=== PATIENT | female | born 1995 | race African-American/Black ===

== ENCOUNTER 2022-06-18 02:07 | Inpatient (IN) ==
[2022-06-18] MEDS ORDERED: TRANEXAMIC ACID 1,000 MG in SODIUM CHLORIDE 0.9% 100 ML IV PRN (02:20)
[2022-06-18] MEDS ORDERED: CARBOPROST TROMETHAMINE 250 MCG/ML AMP IM PRN (02:20)
[2022-06-18] MEDS ORDERED: METHYLERGONOVINE 0.2 MG/1 ML AMP IM PRN (02:20)
[2022-06-18] MEDS ORDERED: miSOPROStoL 200 MCG TABLET RECTAL PRN (02:20)
[2022-06-18] MEDS ORDERED: MEPERIDINE 50 MG/1 ML VIAL IV PRN (02:20)
[2022-06-18] MEDS ORDERED: ONDANSETRON 4 MG/2 ML VIAL IV PRN (02:20)
[2022-06-18] MEDS ORDERED: BUTORPHANOL 2 MG/ML VIAL IV PRN (02:20)
[2022-06-18] MEDS ORDERED: LACTATED RINGERS 1,000 ML IV SCH (02:30)
[2022-06-18] MEDS ORDERED: OXYTOCIN/LR 20 UNIT/1,000 ML BAG IV SCH (02:30)
[2022-06-18] MEDS ORDERED: NALOXONE 0.4 MG/ML VIAL IV PRN (02:51)
[2022-06-18] MEDS ORDERED: hydrOXYzine HCL 25 MG/1 ML VIAL IM PRN (02:51)
[2022-06-18] MEDS ORDERED: diphenhydrAMINE 50 MG/1 ML VIAL IV PRN ×2 (02:51)
[2022-06-18] MEDS ORDERED: PROMETHAZINE 25 MG/1 ML VIAL IM PRN (02:51)
[2022-06-18] MEDS ORDERED: ePHEDrine 50 MG/ML VIAL IV PRN (02:51)
[2022-06-18] MEDS ORDERED: OXYTOCIN/LR 30 UNIT/1,000 ML BAG IV PRN (02:53)
[2022-06-18] MEDS ORDERED: FAMOTIDINE 20 MG/2 ML VIAL IV ONE (02:55)
[2022-06-18] MEDS ORDERED: CITRIC ACID/SODIUM CITRATE 30 ML UDCUP PO ONE (02:55)
[2022-06-18] MEDS ORDERED: LACTATED RINGERS 1,000 ML IV ONE (02:56)
[2022-06-18] MEDS ORDERED: fentaNYL 2 MCG/ROPIV 0.2% EPID 100 ML EPIDURAL SCH (03:00)
[2022-06-18 03:30] LABS: Basophils # 0.1 10*3/uL (0.0-0.2); Basophils % 0.4 % (0.0-0.8); Eosinophils # 0.2 10*3/uL (0.0-0.87); Eosinophils % 1.1 % (0.00-10.9); Hematocrit 34.6 VOL% (35.7-47.0); Hemoglobin 12.4 GM/DL (12.0-16.0); Immature Granulocytes % 1.6 %; Immature Granulocytes Absolute 0.34 #; Lymphocytes % 14.1 % (21.3-54.2); Mean Corpuscular HGB Conc 35.8 GM/DL (32-36); Mean Corpuscular Volume 78.6 FL (87-102); Mean Platelet Volume 9.9 FL (9.6-12.0); Monocytes # 2.3 10*3/uL (0.11-0.8); Monocytes % 10.6 % (1.7-12.7); NRBC # 0.02 10*3/uL; Neutrophils % 72.2 % (38.7-73.9); Platelet Count 347 T/CUMM (130-400); Red Cell Distribution Width 15.4 % (9.3-17.3); White Blood Count 21.58 T/CUMM (4-12)
[2022-06-18 03:51] LABS: Band Neutrophils 5 % (0-10); Lymphocytes 12 % (20-55); Total Cells Counted 100
[2022-06-18 03:52] LABS: Alanine Aminotransferase 15 U/L (13-56); Albumin 2.9 G/DL (3.4-5.0); Alkaline Phosphatase 122 U/L (45-117); Aspartate Amino Transferase 10 U/L (0-37); Bilirubin,Total < 0.39 MG/DL (0.20-1.00); Blood Urea Nitrogen 8 MG/DL (7-18); Calcium 8.7 MG/DL (8.5-10.1); Carbon Dioxide 19 MMOL/L (21-32); Chloride 110 MMOL/L (98-107); Glucose 98 MG/DL (74-106); Hypochromia Slight; Microcytosis 1+; Osmolality,Calculated 276.4 MOS/KG (273-304); Platelet Estimate Normal; Potassium 3.8 MMOL/L (3.5-5.1); Sodium 140 MMOL/L (136-145); Total Protein 6.9 G/DL (6.4-8.2)
[2022-06-18 10:59] LABS: Mucus,Urine Occasional /LPF (Occasional); RBC,Urine 7 /HPF (0-4)
[2022-06-18 11:01] LABS: Bilirubin,Urine Negative (Negative); Blood, Urine Small mg/dL (Negative); Glucose,Urine (UA) Negative (Negative); Ketones,Urine Negative (Negative); Nitrite,Urine Negative (Negative); Protein,Urine Negative (Negative); Urine Appearance Clear (Clear); Urine Color Yellow (Yellow); Urine Specific Gravity 1.015 (1.001-1.035); Urine Urobilinogen 0.2 eU/dL (<2.0)
[2022-06-18] MEDS ORDERED: TRANEXAMIC ACID 1,000 MG/10 ML VIAL ONE (11:41)
[2022-06-18] MEDS ORDERED: miSOPROStoL 200 MCG TABLET ONE (11:41)
[2022-06-18] MEDS ORDERED: CARBOPROST TROMETHAMINE 250 MCG/ML AMP IM ONE (11:42)
[2022-06-18] MEDS ORDERED: METHYLERGONOVINE 0.2 MG/1 ML AMP ONE (11:42)
[2022-06-18] MEDS ORDERED: OXYTOCIN/LR 20 UNIT/1,000 ML BAG IV ONE ×3 (11:42→15:31)
[2022-06-18] MEDS ORDERED: SODIUM CHLORIDE 0.9% 0 ML IV ONE (11:42)
[2022-06-18 12:37] LABS: Cord Arterial Blood HCO3 22.2 MMOL/L
[2022-06-18 12:40] LABS: Cord Venous Blood PCO2 37.1 MMHG; Cord Venous Blood PO2 34.2
[2022-06-18] MEDS ORDERED: BENZOCAINE 20%/MENTHOL 0.5% SPRAY 56 GM CAN TOP PRN (15:31)
[2022-06-18] MEDS ORDERED: ACETAMINOPHEN 325 MG TABLET PO PRN (15:31)
[2022-06-18] MEDS ORDERED: DIPH/TET/ACEL PERT BOOSTER VACCINE 0.5 ML VIAL IM ONE (15:31)
[2022-06-18] MEDS ORDERED: RHO(D) IMMUNE GLOBULIN 300 MCG SYRINGE IM ONE (15:31)
[2022-06-18] MEDS ORDERED: WITCH HAZEL PADS 100/JAR TOP PRN (15:31)
[2022-06-18] MEDS ORDERED: LANOLIN 50% CREAM 0.3 OZ TUBE TOP PRN (15:31)
[2022-06-18] MEDS ORDERED: HYDROCORTISONE 2.5% RECTAL CREAM 30 GM TUBE TOP PRN (15:31)
[2022-06-18] MEDS ORDERED: oxyCODONE/ACETAMINOPHEN 5-325 MG TABLET PO PRN (15:31)
[2022-06-18] MEDS ORDERED: MEASLES/MUMPS/RUBELLA VACCINE 0.5 ML VIAL SUBCUT ONE (15:31)
[2022-06-18] MEDS ORDERED: BISACODYL 10 MG SUPP RECTAL PRN (15:31)
[2022-06-18] MEDS: oxyCODONE/ACETAMINOPHEN 5-325 MG TABLET PO PRN (15:57)
[2022-06-18] MEDS: IBUPROFEN 800 MG TABLET PO PRN (15:57)
[2022-06-18] MEDS: DOCUSATE SODIUM 100 MG CAPSULE PO SCH (20:59)
[2022-06-19] MEDS: IBUPROFEN 800 MG TABLET PO PRN ×2 (01:05→07:51)
[2022-06-19 04:58] LABS: Basophils # 0.1 10*3/uL (0.0-0.2); Basophils % 0.3 % (0.0-0.8); Eosinophils # 0.3 10*3/uL (0.0-0.87); Eosinophils % 1.5 % (0.00-10.9); Hematocrit 32.1 VOL% (35.7-47.0); Hemoglobin 11.7 GM/DL (12.0-16.0); Immature Granulocytes Absolute 0.22 #; Lymphocytes % 13.7 % (21.3-54.2); Mean Corpuscular HGB Conc 36.4 GM/DL (32-36); Mean Corpuscular Volume 79.3 FL (87-102); Mean Platelet Volume 9.5 FL (9.6-12.0); Monocytes # 2.4 10*3/uL (0.11-0.8); Neutrophils % 72.5 % (38.7-73.9); Platelet Count 277 T/CUMM (130-400); Red Blood Count 4.05 MC/CUMM (3.8-5.5); Red Cell Distribution Width 15.3 % (9.3-17.3); White Blood Count 21.93 T/CUMM (4-12)
[2022-06-19 05:31] LABS: Band Neutrophils 2 % (0-10); Eosinophils 2 % (0-10); Lymphocytes 15 % (20-55); Total Cells Counted 100
[2022-06-19 05:32] LABS: Hypochromia Slight; Microcytosis 1+; Polychromasia Slight; Target Cells Slight
[2022-06-19] MEDS: DOCUSATE SODIUM 100 MG CAPSULE PO SCH ×3 (07:51→20:53)
[2022-06-19] MEDS: MULTIVITAMIN (PRENATAL) TABLET PO SCH ×2 (07:51→12:59)
[2022-06-19] MEDS ORDERED: INFLUENZA VIRUS VACCINE 0.5 ML SYRINGE IM ONE (09:08)
[2022-06-19] MEDS: oxyCODONE/ACETAMINOPHEN 5-325 MG TABLET PO PRN (12:05)
[2022-06-20] MEDS: IBUPROFEN 800 MG TABLET PO PRN ×2 (02:00→08:53)
[2022-06-20] MEDS: DOCUSATE SODIUM 100 MG CAPSULE PO SCH (08:49)
[2022-06-20] MEDS: MULTIVITAMIN (PRENATAL) TABLET PO SCH (08:49)
[2022-06-20] MEDS: oxyCODONE/ACETAMINOPHEN 5-325 MG TABLET PO PRN (10:15)
[2022-06-20 12:45] VITALS: BP 129/75
== END 2022-06-20 12:45 | disposition home or self-care (01) | DRG 807 ==
LOC: N.LDOUT 02:07 → N.LD 02:09 → N.OB 15:21
PROVIDERS: ADMIT Obstetrics & Gynecology; ATTEND Obstetrics & Gynecology